=== PATIENT | female | born 1935 | race Caucasian/White ===

== ENCOUNTER 2018-11-25 20:46 | Emergency (ER) | payer MEDICARE, OTHER ==
[2018-11-25] MEDS: ONDANSETRON 4 MG INJ IV (21:13)
[2018-11-25] MEDS: morphine 4 MG/ML VIAL IV (21:14)
[2018-11-25] MEDS: PROPOFOL 200 MG INJ IV (22:31)
== END 2018-11-25 23:15 | disposition home or self-care (01) ==
LOC: E/R 20:46
DX: S52.532A Colles' fracture of left radius, initial encounter for closed fracture (principal); I10 Essential (primary) hypertension; I25.10 Atherosclerotic heart disease of native coronary artery without angina pectoris; W10.8XXA Fall (on) (from) other stairs and steps, initial encounter; Y92.9 Unspecified place or not applicable
CPT/HCPCS: 25505; 73110-LT; 94770; 96374; 96375; 99285-25